=== PATIENT | male | born 1950 | race Caucasian/White ===

== ENCOUNTER 2017-12-29 07:00 | Day surgery (SDC) | payer MEDICARE, OTHER ==
[~2017-12-29] VITALS: Ht 177.8 cm; Wt 92.1 kg
[~2017-12-29 07:00] MED LIST: AZAT50 PO
== END 2017-12-29 22:43 | disposition home or self-care (01) ==
LOC: ORSCMMR 07:00 → ORD 08:30 → ORSCMMR 22:43
PROVIDERS: Internal Medicine Gastroenterology
PROC: 0DBN8ZX Excision of Sigmoid Colon, Via Natural or Artificial Opening Endoscopic, Diagnostic (ICD-10-PCS; principal; 2017-12-29 08:30)
PROC: 0DBK8ZX Excision of Ascending Colon, Via Natural or Artificial Opening Endoscopic, Diagnostic (ICD-10-PCS; principal; 2017-12-29 08:30)
PROC: 0DBM8ZX Excision of Descending Colon, Via Natural or Artificial Opening Endoscopic, Diagnostic (ICD-10-PCS; principal; 2017-12-29 08:30)
PROC: 0DBL8ZX Excision of Transverse Colon, Via Natural or Artificial Opening Endoscopic, Diagnostic (ICD-10-PCS; principal; 2017-12-29 08:30)
PROC: 0DBB8ZX Excision of Ileum, Via Natural or Artificial Opening Endoscopic, Diagnostic (ICD-10-PCS; principal; 2017-12-29 08:30)
DX: Z12.11 Encounter for screening for malignant neoplasm of colon (principal); D12.2 Benign neoplasm of ascending colon; D12.4 Benign neoplasm of descending colon; K63.5 Polyp of colon; K64.8 Other hemorrhoids; K63.89 Other specified diseases of intestine; K57.30 Diverticulosis of large intestine without perforation or abscess without bleeding; Z86.010 Personal history of colon polyps; K58.9 Irritable bowel syndrome, unspecified; F17.210 Nicotine dependence, cigarettes, uncomplicated; Z79.899 Other long term (current) drug therapy
CPT/HCPCS: 88305; J7030

== ENCOUNTER → 2020-12-13 | Outpatient (CLI) | payer MEDICARE, BC ==
[~2020-12-13] MED LIST changes: +FURO40 PO; +Prinivil10 MG PO
[2020-12-13 10:15] LABS: Bun/Creatinine Ratio 22.2 (12.0-20.0); Creatinine, Blood 1.62 mg/dL (0.60-1.20); Potassium, Blood 3.8 mmol/L (3.5-5.5)
== END | disposition home or self-care (01) ==
LOC: LAB EV 10:05 → LAB SHORT 10:05
PROVIDERS: Physician Assistant Medical
DX: R60.9 Edema, unspecified (principal)
CPT/HCPCS: 80048

== ENCOUNTER 2021-01-21 08:26 | Day surgery (SDC) | payer MEDICARE, OTHER ==
[~2021-01-21] VITALS: Ht 172.7 cm; Wt 85.0 kg
[~2021-01-21 08:26] MED LIST changes: -FURO40 PO; -Prinivil10 MG PO
[2021-01-21] MEDS ORDERED: Prinivil10 MG PO (09:21)
[2021-01-21] MEDS ORDERED: FURO40 PO (09:22)
--- NOTE | 2021-01-21 09:36 | NUR ---
Ambulatory in Day Surgery Patient states colon prep results clear. History, Chart, Medications and Allergies reviewed before start of procedure. Lungs clear T/O to Auscultation. Patient confirms NPO status and agrees with scheduled surgery. Patient States Post-Procedure ride home has been arranged.
--- NOTE | 2021-01-21 10:27 | NUR ---
01/21/21 1027 Sun Lowe History, Chart, Medications and Allergies reviewed before start of procedure. Patient confirms NPO status and agrees with scheduled surgery. 3-LEAD EKG REVIEWED WITH PHYSICIAN PRIOR TO START OF PROCEDURE. MONITOR INTACT WITH CONTINUOUS PULSE OXIMETRY AND INTERMITTENT BP. PATIENT DETERMINED TO BE ASA APPROPRIATE FOR PROPOFOL SEDATION PRIOR TO START OF PROCEDURE BY .
--- NOTE | 2021-01-21 11:40 | NUR ---
Patient up to Ambulate independently. Gait steady. Discharge instructions reviewed with patient. Patient verbalizes understanding. Copy given to patient to take home. Discharged via wheelchair to private car for ride home.
== END 2021-01-21 23:32 | disposition home or self-care (01) ==
LOC: ORSCMMR 08:26 → ORD 09:30 → ORSCMMR 09:30
PROVIDERS: Internal Medicine Gastroenterology
PROC: 0DBK8ZX Excision of Ascending Colon, Via Natural or Artificial Opening Endoscopic, Diagnostic (ICD-10-PCS; principal; 2021-01-21 09:30)
PROC: 0DBL8ZX Excision of Transverse Colon, Via Natural or Artificial Opening Endoscopic, Diagnostic (ICD-10-PCS; principal; 2021-01-21 09:30)
PROC: 0DBN8ZX Excision of Sigmoid Colon, Via Natural or Artificial Opening Endoscopic, Diagnostic (ICD-10-PCS; principal; 2021-01-21 09:30)
DX: K50.90 Crohn's disease, unspecified, without complications (principal); Z86.010 Personal history of colon polyps; D12.2 Benign neoplasm of ascending colon; D12.3 Benign neoplasm of transverse colon; D12.5 Benign neoplasm of sigmoid colon; K57.30 Diverticulosis of large intestine without perforation or abscess without bleeding; I10 Essential (primary) hypertension; Z79.899 Other long term (current) drug therapy; F17.210 Nicotine dependence, cigarettes, uncomplicated
CPT/HCPCS: 88305; J2250; J2704; J7120

== ENCOUNTER 2021-01-28 17:55 | Observation (INO) | payer MEDICARE, BC ==
[~2021-01-28] VITALS: Ht 175.3 cm; Wt 80.4 kg
[~2021-01-28 17:55] MED LIST changes: +FURO40 PO; +Prinivil10 MG PO
[2021-01-28 18:50] LABS: Source, Urine Clean Catch
[2021-01-28 19:01] LABS: Bilirubin, Urine Neg (Neg); Blood, Urine Neg (Neg); Glucose Qualitative, Urine Neg (Neg); Ketones, Urine Neg (Neg); Leukocyte Esterase, Urine 2+ (Neg); Nitrite, Urine Neg (Neg); Protein, Urine Neg (Neg); Specific Gravity, Urine 1.005 (1.003-1.022); Urobilinogen, Urine NORM (Normal); pH, Urine 6.5 (5.0-8.0)
[2021-01-28 19:31] LABS: BASOPHILS ABSOLUTE AUTO 0.03 K/mm3 (0.00-0.23); BASOPHILS PERCENT AUTO 0 % (0-2); EOSINOPHILS ABSOLUTE AUTO 0.13 K/mm3 (0.00-0.68); EOSINOPHILS PERCENT AUTO 2 % (0-6); Hematocrit 35.8 % (37.0-53.0); Hemoglobin 12.2 g/dL (13.5-17.5); IMMATURE GRAN ABSOLUTE AUTO 0.02 K/mm3 (0.00-0.10); IMMATURE GRAN PERCENT AUTO 0 % (0-1); LYMPHOCYTES ABSOLUTE AUTO 0.72 K/mm3 (0.84-5.20); LYMPHOCYTES PERCENT AUTO 8 % (21-46); MONOCYTES ABSOLUTE AUTO 0.81 K/mm3 (0.16-1.47); MONOCYTES PERCENT AUTO 9 % (4-13); Mean Corpuscular HGB 36.2 pg (26.0-34.0); Mean Corpuscular HGB Conc 34.1 g/dL (31.5-36.5); Mean Corpuscular Volume 106 fL (80-100); Mean Platelet Volume 9.6 fL (9.1-12.4); NEUTROPHILS ABSOLUTE AUTO 7.04 K/mm3 (1.96-9.15); NEUTROPHILS PERCENT AUTO 81 % (41-73); Platelet Count 248 K/mm3 (150-400); RDW Coefficient Variation 14.5 % (11.7-14.2); RDW Standard Deviation 56.9 fL (35.1-46.3); Red Blood Cell Count 3.37 M/mm3 (4.30-5.90); White Blood Cell Count 8.75 K/mm3 (4.00-11.30)
[2021-01-28 19:41] LABS: Appearance, Urine Clear (Clear); Color, Urine Yellow (P-Yellow)
[2021-01-28 19:42] LABS: Bacteria Not Seen /hpf; Red Blood Cells, Urine Not Seen /hpf (0-2); Squamous Epithelial Cells Rare /hpf (Few)
[2021-01-28 19:49] LABS: Alanine Aminotransfer (ALT/SGP 24 U/L (12-78); Albumin, Blood 3.5 g/dL (3.4-5.0); Alk Phos 92 U/L (50-136); Anion Gap 7 mmol/L (6-16); Aspartate Aminotrans (AST/SGOT 29 U/L (12-37); Bilirubin, Total 0.5 mg/dL (0.1-1.0); Blood Urea Nitrogen 39 mg/dL (8-24); CO2, Blood 26 mmol/L (21-32); Calcium, Blood 9.5 mg/dL (8.5-10.1); Chloride, Blood 111 mmol/L (98-108); Creatinine, Blood 2.17 mg/dL (0.60-1.20); Globulin, Blood 3.6 g/dL (2.2-4.0); Glomerular Filtration Rate 32 (60-); Glucose, Blood 95 mg/dL (70-99); Potassium, Blood 3.9 mmol/L (3.5-5.5); Sodium, Blood 144 mmol/L (136-145); Total Protein, Blood 7.1 g/dL (6.4-8.2)
[2021-01-29 06:25] LABS: BASOPHILS ABSOLUTE AUTO 0.03 K/mm3 (0.00-0.23); BASOPHILS PERCENT AUTO 0 % (0-2); EOSINOPHILS ABSOLUTE AUTO 0.16 K/mm3 (0.00-0.68); EOSINOPHILS PERCENT AUTO 2 % (0-6); Hematocrit 32.3 % (37.0-53.0); Hemoglobin 11.3 g/dL (13.5-17.5); IMMATURE GRAN ABSOLUTE AUTO 0.03 K/mm3 (0.00-0.10); IMMATURE GRAN PERCENT AUTO 0 % (0-1); LYMPHOCYTES PERCENT AUTO 7 % (21-46); MONOCYTES PERCENT AUTO 10 % (4-13); Mean Corpuscular HGB 36.6 pg (26.0-34.0); Mean Corpuscular Volume 105 fL (80-100); Mean Platelet Volume 9.4 fL (9.1-12.4); NEUTROPHILS ABSOLUTE AUTO 6.84 K/mm3 (1.96-9.15); NEUTROPHILS PERCENT AUTO 81 % (41-73); Platelet Count 223 K/mm3 (150-400); RDW Coefficient Variation 14.3 % (11.7-14.2); RDW Standard Deviation 54.6 fL (35.1-46.3); Red Blood Cell Count 3.09 M/mm3 (4.30-5.90); White Blood Cell Count 8.46 K/mm3 (4.00-11.30)
[2021-01-29 07:08] LABS: Albumin, Blood 2.9 g/dL (3.4-5.0); Albumin/Globulin Ratio 0.9 (0.8-1.8); Bilirubin, Total 0.7 mg/dL (0.1-1.0); Bun/Creatinine Ratio 16.3 (12.0-20.0); Calcium, Blood 8.5 mg/dL (8.5-10.1); Creatinine, Blood 1.9 mg/dL (0.60-1.20); Globulin, Blood 3.2 g/dL (2.2-4.0); Potassium, Blood 3.5 mmol/L (3.5-5.5); Total Protein, Blood 6.1 g/dL (6.4-8.2)
--- NOTE | 2021-01-29 10:20 | NUR ---
Assumed Care Received report from [facility]-RN. Patient arrived to unit with one bag of personal belongings. A/Ox3, 1p FWW c gait, unsteady gait. Oriented to room, call barragan system, and hourly rounding. Denies any pain, nausea, diarrhea. Martínez patent and draining pinkish yellow clear urine. Call light in reach, bed in lowest position. WCTM.
--- NOTE | 2021-01-29 17:52 | NUR ---
Shift Summary A/Ox3, pleasant and cooperative. Denies pain, nausea, vomiting, diarrhea. Unsteady gait, 1p gait and FWW for safety. Patient on immunosupressant for Crohns. Martínez patent and draining. No leaking noted. Some edema in BLE, see shift assessment. Otherwise, no acute changes.
[2021-01-30 05:39] LABS: Hematocrit 33.3 % (37.0-53.0); Hemoglobin 11.5 g/dL (13.5-17.5)
--- NOTE | 2021-01-30 05:57 | NUR ---
PATIENT A&OX4, SLEPT WELL. WOULD LIKE A NICOTIME PATCH IF POSSIBLE TO HELP HIM GET THROUGH HIS HOSPITAL STAY. JAYA STATES IT HAS WORKED WELL IN OTHER SITUATIONS. HE HAS A VERY AUDIBLE EXPIRATORY WHEEZE ON AUSCULTATION, AND A LOUD WHEEXY SNORE HE SLEEPS.
[2021-01-30 06:05] LABS: Albumin, Blood 2.8 g/dL (3.4-5.0); Anion Gap 7 mmol/L (6-16); Blood Urea Nitrogen 28 mg/dL (8-24); Bun/Creatinine Ratio 16.7 (12.0-20.0); CO2, Blood 25 mmol/L (21-32); Calcium, Blood 8.8 mg/dL (8.5-10.1); Chloride, Blood 110 mmol/L (98-108); Creatinine, Blood 1.68 mg/dL (0.60-1.20); Glomerular Filtration Rate 43 (60-); Glucose, Blood 85 mg/dL (70-99); Magnesium, Blood 1.7 mg/dL (1.6-2.4); Phosphorus, Blood 3.4 mg/dL (2.5-4.9); Potassium, Blood 3.5 mmol/L (3.5-5.5); Sodium, Blood 142 mmol/L (136-145)
--- NOTE | 2021-01-30 14:52 | NUR ---
NICOTINE PATCH PATIENT REQUESTING NICOTINE PATCH. SMOKES 2/3 PPD. T.O. RECEIV[address] FROM DR. ANDREWS FOR 21 MG TRANSDERMAL NICOTINE PATCH DAILY, FIRST ONE NOW. EMAR UPDATED.
--- NOTE | 2021-01-30 16:15 | NUR ---
Update 01/30/2021: Per chart review with Dr. Dimas, pt. not quite ready for discharge. Pt. likely to discharge over the weekend. [facility] Discharge plan discussed with pt. Letter given with information regarding appointment. Pt. denied concerns with mobility or safety at home. He feels that he has adequate caregiver support from his [place]. He is looking forward to possibly being discharged over the weekend.
--- NOTE | 2021-01-30 17:02 | NUR ---
Shift Summary Pleasant. Tolerating PO intake, no compliants of pain, nausea, diarrhea. Up with 1P/FWW. A/Ox4, german intact and draining clear yellow urine to gravity. No acute changes. WCTM.
--- NOTE | 2021-01-30 19:30 | NUR ---
ASSUMED CARE. AOX3, COOPERATIVE. PLEASANT. DENIES PAIN OR DISCOMFORT. N/T TO LEFT HAND AND RIGHT FOOT. STATES HAS BEEN THAT WAY FOR LONG TIME. MILD EDEMA TO BLE +2 KEEPS FEET ELEVATED. SCD ARE IN PLACE. LUNG SOUNDS ARE CLEAR. HR SINUS. STATES REGULAR BM. CATHETER PATIENT AND CURRENTLY DRAINING CLEAR URINE, YELLOW. NO CLOTS AT THIS TIME. WILL CONTINUE TO MONITOR. CALL LIGHT IN REACH. FALL PRECAUTIONS IN PLACE.
--- NOTE | 2021-01-30 21:06 | NUR ---
ELECTRIC MOTOR REPAIRER IS WALKING THE PATIENT OUT IN THE [place].
--- NOTE | 2021-01-30 21:37 | NUR ---
CHLOE IS RESTING IN BED NOW, WATCHING HIS COMPUTER. DENIES ANY NEEDS. CATHETER IS STILL PATIENT NO BLOOD NOTED. WILL CONTINUE TO MONITOR. CALL LIGHT IN REACH.
--- NOTE | 2021-01-30 23:00 | NUR ---
CHLOE IS AWAKE, READING. REPORTS ALL IS GOOD, NO NEEDS NOTED. CALL LIGHT IN REACH, ALARM IS SET. WILL CONTINUE TO MONITOR.
[2021-01-31 06:21] LABS: Albumin, Blood 2.9 g/dL (3.4-5.0); Anion Gap 6 mmol/L (6-16); Blood Urea Nitrogen 29 mg/dL (8-24); Bun/Creatinine Ratio 19.5 (12.0-20.0); CO2, Blood 24 mmol/L (21-32); Calcium, Blood 8.8 mg/dL (8.5-10.1); Chloride, Blood 108 mmol/L (98-108); Creatinine, Blood 1.49 mg/dL (0.60-1.20); Glomerular Filtration Rate 46 (60-); Glucose, Blood 95 mg/dL (70-99); Magnesium, Blood 1.7 mg/dL (1.6-2.4); Phosphorus, Blood 3.2 mg/dL (2.5-4.9); Potassium, Blood 3.7 mmol/L (3.5-5.5); Sodium, Blood 138 mmol/L (136-145)
--- NOTE | 2021-01-31 06:48 | NUR ---
SHIFT SUMMARY: AOX3, COOPERATIVE. WALKED LAST NIGHT WITH FWW AND SBA. LEWIS PATENT AND DRAINING YELLOW URINE WITH NO CLOTS OR BLOOD NOTED THIS SHIFT. NO PAIN OR DISCOMFORT. VSS, AFEBRILE. GFR 43, CREATINE 1.68. MILD EDEMA TO BLE. KEEPS FEET ELEVATED. SLEPT WELL. NO OTHER ACUTE CHANGES TO NOTE THIS SHIFT. CALL LIGHT WITH IN REACH.
--- NOTE | 2021-01-31 16:15 | NUR ---
DISCHARGE SUMMARY PT DISCHARGE TODAY AT 1550. PT A&OX4, ABLE TO MAKE NEEDS KNOWN. PLEASANT AND COOPERATIVE TO CARE. PT VERBALIZED UNDERSTANDING OF DISCHARGE ORDERS. PT's PRESENT DURING DISCHARGE PROCESS. NO CONCERNS OR ANY ISSUES NOTED FROM PT AND FAMILY. LEWIS PATENT AND DRAINING TO GRAVITY. LEG BAG IN PLACE. DISCHARGE PAPERWORK GIVEN TO PATIENT UPON DISCHARGE. IV LINE DISCONTINUED UPON DISCHARGE.
== END 2021-01-31 15:51 | disposition home or self-care (01) ==
LOC: ER 17:55 → ERHOLD 17:56 → MEDS 17:56 → ERHOLD 17:56 → ER 20:16 → MEDS 01-29 10:16
PROVIDERS: Internal Medicine Nephrology; Physician Assistant; ADMIT Internal Medicine
DX: N17.9 Acute kidney failure, unspecified (principal); I12.9 Hypertensive chronic kidney disease with stage 1 through stage 4 chronic kidney disease, or unspecified chronic kidney disease; N18.4 Chronic kidney disease, stage 4 (severe); N40.1 Benign prostatic hyperplasia with lower urinary tract symptoms; R33.8 Other retention of urine; N13.8 Other obstructive and reflux uropathy; N13.30 Unspecified hydronephrosis; F17.210 Nicotine dependence, cigarettes, uncomplicated; D64.9 Anemia, unspecified; K50.90 Crohn's disease, unspecified, without complications; F10.20 Alcohol dependence, uncomplicated; F12.90 Cannabis use, unspecified, uncomplicated; G25.0 Essential tremor
CPT/HCPCS: 36415; 51702; 80053; 80069; 81001; 83735; 84153; 84154; 85014; 85018; 85025; 99285-25; A9270; G0378; J7030; J7500